=== PATIENT | female | born 1940 | race Caucasian/White ===

== ENCOUNTER 2016-09-07 13:31 | Day surgery (SDC) | payer MEDICARE ==
[~2016-09-07] VITALS: Ht 152.4 cm; Wt 72.1 kg
[~2016-09-07 13:31] MED LIST: ALBU2.5V4 INHALATION; ALBU6.7H INH; ALPR0.5T PO; ASPI-973 PO; BENZ200C44 PO; CIPR-198 PO; DESO15CR10 TOP; DICL50TA5 PO; DIPH25CA6 PO; ESTR1PAT82 TRANSDERM; FLUT15.88 NS; GABA-500 PO; GLIM2TAB PO; GLIM2TAB2 PO; HYDR-4003 PO; INSU100C8 SUBQ; INSU100V4 SUBQ; INSU100V7 SUBQ; LEVO100T6 PO; LISI-571 PO; METF500T4 PO; NORT50CA PO; OMEP20TA86 PO; ZLP10T PO; [UNRECOGNIZED DRUG - CODE] PO
[2016-09-07 14:30] VITALS: BP 164/83; PULSE 69; RESP 16; O2SAT 94
--- NOTE | 2016-09-07 15:03 | PCM.PROC ---
Procedure Note Date of Service: Sep 07, 2016 Pre Procedure Diagnosis: Procedure Note PROCEDURE: LEFT Flouroscopic guided hip joint injection. PRE-PROCEDURE DIAGNOSIS: Hip arthropathy/pain POST-PROCEDURE DIAGNOSIS: same INDICATION: 76-year-old patient with LEFT hip arthritis PERFORMED BY: Umer Young MD DESCRIPTION OF PROCEDURE: Patient was met in the holding area. Consent was signed, site was confirmed and all questions were answered. Patient was taken to the procedure suite and placed supine on the procedure table. Area was prepped and draped in sterile fashion. Local anesthesia with 1% lidocaine was injected into the skin and subcutaneous tissues Using x-ray guidance, a 3-1/2 inch 22-gauge Quincke spinal needle was advanced into the hip joint and 4cc of 0.25% bupivacaine with 80mg depomedrol was injected without incident, after contrast confirmed intra-articular placement without vascular uptake. POST-PROCEDURE DISPOSITION: Patient was returned to the holding area in stable condition. They were discharged home when all discharge criteria were met. Evaluation/Physical Exam before discharge revealed: DISCHARGE MEDICATIONS: FOLLOW UP: Return to clinic in 4 weeks. Umer Colon MD, MD Sep 07, 2016 15:03
[2016-11-01] MEDS ORDERED: SYN75 PO (15:17)
[2016-11-01] MEDS ORDERED: CITA10TA9 PO (15:17)
[2016-11-01] MEDS ORDERED: HYDR-4003 PO (15:17)
[2016-11-01] MEDS ORDERED: DICL50TA5 PO (15:17)
[2016-11-01] MEDS ORDERED: OMEP20CA11 PO (15:17)
[2016-11-01] MEDS ORDERED: SIMV20TA4 PO (15:17)
== END 2016-09-07 23:59 | disposition home or self-care (01) ==
LOC: END 13:31
PROVIDERS: ATTEND Anesthesiology Pain Medicine
DX: M16.12 Unilateral primary osteoarthritis, left hip (principal)

== ENCOUNTER 2016-11-02 08:56 | Day surgery (SDC) | payer MEDICARE ==
[~2016-11-02] VITALS: Ht 152.4 cm; Wt 68.0 kg
[~2016-11-02 08:56] MED LIST changes: -ALPR0.5T PO; -BENZ200C44 PO; -CIPR-198 PO; +CITA10TA9 PO; -DESO15CR10 TOP; -DIPH25CA6 PO; -ESTR1PAT82 TRANSDERM; -FLUT15.88 NS; -GLIM2TAB PO; -GLIM2TAB2 PO; -INSU100V7 SUBQ; -LEVO100T6 PO; -NORT50CA PO; +OMEP20CA11 PO; -OMEP20TA86 PO; +SIMV20TA4 PO; +SYN75 PO; -ZLP10T PO
[2016-11-02] MEDS ORDERED: MethylprednisoLONE Depot 80 mg/mL Inj ONE (08:57)
[2016-11-02] MEDS ORDERED: Bupivacaine-MPF 0.25% 30 mL Inj ONE (08:57)
[2016-11-02 09:40] VITALS: BP 146/64; PULSE 73; RESP 16; O2SAT 96
--- NOTE | 2016-11-02 14:58 | PCM.PROC ---
Procedure Note Date of Service: November 02, 2016 Pre Procedure Diagnosis: PROCEDURE: LEFT Sacroiliac joint injection (fluoroscopically guided) PRE-PROCEDURE DIAGNOSIS: Sacroiliitis POST-PROCEDURE DIAGNOSIS: same INDICATION: 76-year-old patient with posterior hip pain, suggestive of sacroiliitis ASA / ANTICOAGULATION: No asa x 7 days PERFORMED BY: Umer Young MD DESCRIPTION OF PROCEDURE: Patient was met in the holding area. Consent was signed, site was confirmed and all questions were answered. Patient was taken to the procedure suite and placed prone on the procedure table. Local anesthesia with 1% lidocaine was injected into the epidermidis and dermis. A 22-gauge Quincke spinal needle was advanced towards the sacroiliac joint after visualization was optimized fluoroscopically in the AP view. Proper positioning in the joint was confirmed by injecting contrast. We then took a lateral view to reconfirm proper positioning in the sacroiliac joint. 80mg depomedrol with 2 cc of 0.25% Bupivicaine injected without difficulty. ANESTHESIA: Local. EBL: None. No Blood Products Used COMPLICATIONS: None SPECIMENS: None POST-PROCEDURE DISPOSITION: Patient tolerated the procedure well was returned to the holding area in stable condition. They were discharged home when all discharge criteria were met. Fluro time: See Radiology Report Evaluation/Physical Exam before discharge revealed: DISCHARGE MEDICATIONS: none FOLLOW UP: Keep appointment for LEFT paramedian L4-L5 interlaminar epidural steroid injection Umer Young MD * Pain Management * Anesthesiology Umer Young MD November 02, 2016 14:58
== END 2016-11-02 23:59 | disposition home or self-care (01) ==
LOC: END 08:56
PROVIDERS: ATTEND Anesthesiology Pain Medicine
DX: M46.1 Sacroiliitis, not elsewhere classified (principal); E11.9 Type 2 diabetes mellitus without complications; J44.9 Chronic obstructive pulmonary disease, unspecified
CPT/HCPCS: G0260; J1040

== ENCOUNTER 2016-11-30 14:00 | Day surgery (SDC) | payer MEDICARE ==
[~2016-11-30] VITALS: Ht 154.9 cm; Wt 70.3 kg
[2016-11-30] MEDS ORDERED: MethylprednisoLONE Depot 80 mg/mL Inj ONE (14:01)
[2016-11-30] MEDS ORDERED: Iohexol 240 mg/mL 10 mL Inj ONE (14:01)
[2016-11-30 14:26] VITALS: BP 126/55; PULSE 77; RESP 14; O2SAT 97
--- NOTE | 2016-11-30 16:01 | PCM.PROC ---
Procedure Note Date of Service: Nov 30, 2016 Pre Procedure Diagnosis: PROCEDURE: Lumbar Interlaminar epidural steroid injection. LEFT paramedian L4- L5 ASA / ANTI-COAGULATION . No asa x 7 days. PRE-PROCEDURE DIAGNOSIS: Lumbar radiculopathy POST-PROCEDURE DIAGNOSIS: same INDICATION: 76-year-old patient with LEFT leg pain consistent with lumbar radiculopathy PERFORMED BY: Umer Young MD DESCRIPTION OF PROCEDURE: Patient was met in the holding area. Consent was signed, site was confirmed and all questions were answered. Patient was taken to the procedure suite and placed prone on the procedure table. Area was prepped and draped in sterile fashion. Local anesthesia with 1% lidocaine was injected. An 18-gauge Touhy needle was advanced toward the interlaminar space using fluoroscopic guidance after optimizing the AP view. A loss of resistance syringe was attached as we approached the epidural space in the lateral view. After [id number] was obtained, radioopaque contrast was injected under live fluro which confirmed epidural placement without intravascular uptake. Then , 80 mg depomedrol was injected without difficulty. ANESTHESIA: Local. EBL: None. No Blood Products Used COMPLICATIONS: None SPECIMENS: None POST-PROCEDURE DISPOSITION: Patient was returned to the holding area in stable condition. They were discharged home when all discharge criteria were met. Evaluation/Physical Exam before discharge revealed: DISCHARGE MEDICATIONS: FOLLOW UP: Keep scheduled follow-up Umer Young MD * Pain Management * Anesthesiology .ED: Y: Patient given care and follow up instructions Umer Young MD Nov 30, 2016 16:01
== END 2016-11-30 23:59 | disposition home or self-care (01) ==
LOC: END 14:00
PROVIDERS: ATTEND Anesthesiology Pain Medicine
DX: M54.16 Radiculopathy, lumbar region (principal); E11.9 Type 2 diabetes mellitus without complications; Z79.84 Long term (current) use of oral hypoglycemic drugs; J44.9 Chronic obstructive pulmonary disease, unspecified
CPT/HCPCS: 62323; J1040